=== PATIENT | female | born 1965 | race Caucasian/White ===

== ENCOUNTER 2017-01-22 22:39 | Emergency (ER) | payer SELFPAY ==
[2017-01-22 23:12] VITALS: BP 146/76
--- NOTE | 2017-01-23 02:20 | ER Document Report ---
HPI - HPI Patient complains to provider of: Tooth ache Onset: Last week Onset/Duration: Gradual Quality of pain: Throbbing Pain Level: 3 Context: 51-year-old female who is visiting the area is complaining of right upper sided tooth pain for several days. She now feels something that is sticking out or popping out in the gingiva adjacent to it. No fever chills. No facial swelling. Associated Symptoms: None Exacerbated by: Denies Relieved by: Denies Similar symptoms previously: No Recently seen / treated by doctor: No - ROS ROS below otherwise negative: Yes Systems Reviewed and Negative: Yes All other systems reviewed and negative - DERM Skin Color: Normal, [place] Past Medical History - General Information source: Patient - Social History Smoking Status: Current Every Day Smoker Frequency of alcohol use: None Drug Abuse: None Lives with: Family Family History: Reviewed & Not Pertinent Patient has suicidal ideation: No Patient has homicidal ideation: No - Medical History Medical History: Negative Renal/ Medical History: Denies: Hx Peritoneal Dialysis Surgical Hx: Negative Vertical Provider Document - CONSTITUTIONAL Exam Limitations: No Limitations General Appearance: No Apparent Distress - INFECTION CONTROL TRAVEL OUTSIDE OF THE [place] IN LAST 30 DAYS: No - HEENT HEENT: Normocephalic Notes: decayed top right 2nd molar with adjacent abscess - NECK Neck: Supple. negative: Lymphadenopathy-Left, Lymphadenopathy-Right - RESPIRATORY Respiratory: Breath Sounds Normal, No Respiratory Distress O2 Sat by Pulse Oximetry: 97 - CARDIOVASCULAR Cardiovascular: Regular Rate, Regular Rhythm - MUSCULOSKELETAL/EXTREMETIES Musculoskeletal/Extremeties: MAEW, FROM - NEURO Level of Consciousness: Awake, Alert - DERM Integumentary: Warm, Dry, No Rash, Abscess - see above Course - Vital Signs Vital signs: Temp Pulse Resp BP Pulse Ox 97.7 F 83 16 146/76 H 97 01/22/17 23:09 01/22/17 23:09 01/22/17 23:09 01/22/17 23:09 01/22/17 23:09 Discharge - Discharge Clinical Impression: Dental pain and decay Condition: Good Disposition: HOME, SELF-CARE Instructions: Toothache ([facility]), Oral Narcotic Medication ([facility]), Clindamycin ([facility] ), Dentist Additional Instructions: warm compress to er if worse see the dentist as soon as possible Prescriptions: Hydrocodone Bit/Acetaminophen [Hydrocodon-Acetaminophen 5-325] 1 - 2 each PO Q4HP PRN #10 tablet PRN Reason: Clindamycin HCl [Cleocin 150 mg Capsule] 300 mg PO TID #42 capsule
[2017-01-23] MEDS ORDERED: HYDROCODONE/ACETAMINOPHEN 5-325 MG 6 TAB/DSPK PO PRN (02:25)
[2017-01-23] MEDS ORDERED: ONDANSETRON 4 MG TAB.RAPDIS PO ONE (02:25)
[2017-01-23] MEDS ORDERED: CLINDAMYCIN HCL 150 MG CAPSULE PO ONE (02:25)
== END 2017-01-23 03:33 | disposition home or self-care (01) ==
LOC: ER 22:39
DX: K08.89 Other specified disorders of teeth and supporting structures (principal); K02.9 Dental caries, unspecified; F17.200 Nicotine dependence, unspecified, uncomplicated
CPT/HCPCS: 99282; S0119